=== PATIENT | male | born 1995 | race Caucasian/White ===

== ENCOUNTER 2017-08-25 20:22 | Emergency (ER) | payer OTHER ==
[2017-08-25 20:34] VITALS: BP 117/69
[2017-08-25] MEDS ORDERED: Amoxicillin/Clavulanate TAB* 875 MG PO ONE (20:59)
--- NOTE | 2017-08-25 21:25 | UC ---
FLU HPI - HPI Summary HPI Summary: 22 yr old [employer] c/o feeling worse after dx'd with Flu B yesterday but his sx of f/c/body aches sore throat, MULLINS started 4-5 days ago. Pt is on Tamiflu but worsening cough with sputum and fevers that are still high 103.8 in spite of taking tylenol and motrin around the clock - History of Current Complaint Chief Complaint: UCGeneralIllness Stated Complaint: COUGH, AND FEVER Time Seen by Provider: 08/25/17 20:50 Hx Obtained From: Patient Onset/Duration: Lasting Days, Still Present Severity Currently: Severe Severity Initially: Severe Pain Intensity: 6 - Allergy/Home Medications Allergies/Adverse Reactions: Allergies Allergy/AdvReac Type Severity Reaction Status Date / Time No Known Allergies Allergy Verified 08/25/17 20:34 Home Medications: Home Medications Ibuprofen [Advil] 200 mg PO 08/25/17 [History] Oseltamivir Phosphate [Tamiflu] 08/25/17 [History] PMH/Surg Hx/FS Hx/Imm Hx - Additional Past Medical History Additional PMH: none Previously Healthy: Yes - Surgical History Surgical History: None - Social History Alcohol Use: Occasionally Substance Use Type: None Smoking Status (MU): Never Smoked Tobacco Review of Systems Constitutional: Fever, Chills, Fatigue Skin: Negative Eyes: Negative ENT: Sore Throat, Ear Ache, Nasal Discharge, Sinus Congestion Respiratory: Cough Cardiovascular: Negative Gastrointestinal: Negative Genitourinary: Negative Motor: Negative Neurovascular: Negative Musculoskeletal: Myalgia Psychological: Negative Is Patient Immunocompromised?: No All Other Systems Reviewed And Are Negative: Yes Physical Exam Triage Information Reviewed: Yes Appearance: Well-Nourished, Ill-Appearing Vital Signs: Initial Vital Signs Temp 37.8 C 08/25/17 20:28 Pulse 83 08/25/17 20:28 Resp 16 08/25/17 20:28 BP 117/69 08/25/17 20:28 Pulse Ox 86 08/25/17 20:28 Eye Exam: Normal ENT Exam: Normal ENT: Positive: Pharyngeal erythema, Nasal congestion, Nasal drainage, TM dull, Other - POST-AURICULAR LN tenderness B/L. Negative: Tonsillar swelling, Tonsillar exudate Dental Exam: Normal Neck exam: Normal Neck: Positive: 1 Respiratory: Positive: Other: - Coarse BS B/L Cardiovascular Exam: Normal Abdominal Exam: Normal Musculoskeletal Exam: Normal Neurological Exam: Normal Psychological Exam: Normal Skin Exam: Normal Flu Course/Dx - Course Course Of Treatment: pt may have secondary bacterial infections- i.e- OM and bronchitis that may be evolving in setting of acute Flu B. Will tx with Augmentin and continue Tamiflu - Differential Dx/Diagnosis Differential Diagnosis/HQI/PQRI: Bronchitis, Influenza Provider Diagnoses: B/L Otitis Media. Bronchitis. Influenza B Discharge - Discharge Plan Condition: Stable Disposition: HOME Prescriptions: Amoxicillin/Clavulanate TAB* [Augmentin TAB 875*] 875 mg PO BID 7 Days #14 tab Referrals: No Primary Care Phys,NOPCP [Primary Care Provider] - Additional Instructions: rest, hydrate, control fever with Aleve (take every 12 hrs) then Tylenol every 4 -6 hrs for refractory fevers in between
== END 2017-08-25 21:22 | disposition home or self-care (01) ==
LOC: UCEAST 20:22
DX: H66.93 Otitis media, unspecified, bilateral (principal); J40 Bronchitis, not specified as acute or chronic; J10.1 Influenza due to other identified influenza virus with other respiratory manifestations
CPT/HCPCS: 99212; A9270-GY; G0463

== ENCOUNTER 2017-09-26 19:28 | Emergency (ER) | payer OTHER ==
[2017-09-26 21:30] LABS: ABS Basophils 0 10^3/ul (0-0.2); ABS Eosinophils 0.2 10^3/ul (0-0.6); ABS Lymphocytes 1.3 10^3/ul (1.0-4.8); ABS Monocytes 0.6 10^3/ul (0-0.8); ABS Neutrophils 7.2 10^3/ul (1.5-7.7); ABS Nucleated RBC 0 10^3/ul; Eosinophil % 2.1 % (0-6); Hematocrit 43 % (42-52); Hemoglobin 15.1 g/dl (14.0-18.0); Lymphocyte % 13.9 % (25-47); Mean Corpuscular HGB Conc 35 g/dl (31-36); Mean Corpuscular Hemoglobin 31 pg (27-31); Mean Corpuscular Volume 89 fL (80-94); Mean Platelet Volume 8.5 um3 (7.4-10.4); Nucleated Red Blood Cells % 0; Platelet Count 209 10^3/ul (150-450); Red Blood Count 4.87 10^6/ul (4.0-5.4); Red Cell Distribution Width 14 % (10.5-15); White Blood Count 9.4 10^3/ul (3.5-10.8)
[2017-09-26 21:47] LABS: EGFR Non-African American 99.9 (>60)
--- NOTE | 2017-09-26 22:01 | RAD ---
INDICATION: Chest pain COMPARISON: None. TECHNIQUE: Single AP portable view of the chest was obtained. FINDINGS: Image quality is compromised due to the relative inferiority of a portable chest x-ray. The heart and mediastinum exhibit normal size and contour. The lungs are grossly clear. There is no evidence of a large pleural effusion. Visualized bones are normal for the patient's age. IMPRESSION: No radiographic evidence for acute cardiopulmonary abnormality on this portable chest x-ray.
[2017-09-26 22:28] VITALS: BP 107/71
--- NOTE | 2017-09-27 14:20 | ED ---
Noe Carlos Julia, scribed for Curt Fine on 09/26/17 at 2137 . HPI Chest Pain - HPI Summary HPI Summary: This patient is a 22 year old M presenting to [facility] with a chief complaint of sudden intermittent chest pain/tightness and palpitations for the past 3-4 days that is currently improved. Patient rates pain 8/10 at its worst. Patient reports increased anxiety for the past couple of days, with a couple of panic attacks lasting 30 minutes. He states his chest pain began during soccer practice, but he does not usually have chest pain with exertion. Patient denies SI and SOB - History of Current Complaint Chief Complaint: EDChestPainROMI Time Seen by Provider: 09/26/17 21:05 Hx Obtained From: Patient Onset/Duration: Resolved Timing: Lasting Minutes Initial Severity: Severe Current Severity: Mild Pain Intensity: 8 Pain Scale Used: 0-10 Numeric Character: Pressure/Squeezing Aggravating Factor(s): Exertion Associated Signs and Symptoms: Positive: Chest Pain, Anxiety, Palpitations. Negative: Shortness of Breath - Allergy/Home Medications Allergies/Adverse Reactions: Allergies Allergy/AdvReac Type Severity Reaction Status Date / Time No Known Allergies Allergy Verified 08/25/17 20:34 Home Medications: Home Medications Ibuprofen TAB* [Advil TAB*] 200 mg PO Q6H PRN 09/26/17 [History Confirmed ] PMH/Surg Hx/FS Hx/Imm Hx Cardiovascular History: Denies: Hx Hypertension Psychiatric History: Reports: Hx Anxiety Infectious Disease History: No Infectious Disease History: Denies: Traveled Outside the [place] in Last 30 Days - Family History Known Family History: Positive: Cardiac Disease, Other - mental health - Social History Occupation: Student Alcohol Use: Occasionally Hx Substance Use: No - Pt denies cocaine use. Substance Use Type: Reports: None Smoking Status (MU): Never Smoked Tobacco Review of Systems Positive: Chest Pain Negative: Shortness Of Breath Positive: Anxious All Other Systems Reviewed And Are Negative: Yes Physical Exam - Summary Physical Exam Summary: Appearance: Well appearing, no pain distress Skin: warm, dry, reflects adequate perfusion Head/face: normal Eyes: EOMI, RL ENT: normal Neck: supple, non-tender Respiratory: CTA, breath sounds present Cardiovascular: RRR, pulses symmetrical Abdomen: non-tender, soft Bowel: present Musculoskeletal: normal, strength/ROM intact Neuro: normal, sensory motor intact, A&Ox3 Triage Information Reviewed: Yes Vital Signs On Initial Exam: Initial Vitals Temp Pulse Resp BP Pulse Ox 98.7 F 62 18 149/76 99 09/26/17 19:54 09/26/17 19:54 09/26/17 19:54 09/26/17 19:54 09/26/17 19:54 Vital Signs Reviewed: Yes Diagnostics - Vital Signs Vital Signs Temp Pulse Resp BP Pulse Ox 09/26/17 21:10 67 15 124/78 97 09/26/17 21:09 14 09/26/17 21:08 124/78 09/26/17 19:54 98.7 F 62 18 149/76 99 - Laboratory Lab Results: Lab Results 09/26/17 Range/Units 21:19 WBC 9.4 (3.5-10.8) 10^3/ul RBC 4.87 (4.0-5.4) 10^6/ul Hgb 15.1 (14.0-18.0) g/dl Hct 43 (42-52) % MCV 89 (80-94) fL MCH 31 (27-31) pg MCHC 35 (31-36) g/dl RDW 14 (10.5-15) % Plt Count 209 (150-450) 10^3/ul MPV 8.5 (7.4-10.4) um3 Neut % (Auto) 77.4 (38-83) % Lymph % (Auto) 13.9 L (25-47) % [place] % (Auto) 6.3 (0-7) % Eos % (Auto) 2.1 (0-6) % Baso % (Auto) 0.3 (0-2) % Absolute Neuts (auto) 7.2 (1.5-7.7) 10^3/ul Absolute Lymphs (auto) 1.3 (1.0-4.8) 10^3/ul Absolute Monos (auto) 0.6 (0-0.8) 10^3/ul Absolute Eos (auto) 0.2 (0-0.6) 10^3/ul Absolute Basos (auto) 0 (0-0.2) 10^3/ul Absolute Nucleated RBC 0 10^3/ul Nucleated RBC % 0 Result Diagrams: 09/26/17 21:19 09/26/17 21:19 Lab Statement: Any lab studies that have been ordered have been reviewed, and results considered in the medical decision making process. - Radiology CXR Radiology Interpretation Completed By: Radiologist - No radiographic evidence for acute cardiopulmonary abnormality on this portable chest x-ray. ED Physician has reviewed this report. - EKG 19:45 Cardiac Rate: NL - at 64 BPM EKG Rhythm: Sinus Rhythm EKG Interpretation: no acute changes Re-Evaluation - Re-Evaluation 1 Comment: Results discussed with patient. Patient will be discharged. Chest Pain Course/Dx - Course Course Of Treatment: Patient presents with udden intermittent chest pain/ tightness and palpitations for the past 3-4 days that is currently improved. Patient rates pain 8/10 at its worst. Patient reports increased anxiety for the past couple of days, with a couple of panic attacks lasting 30 minutes. He states his chest pain began during soccer practice, but he does not usually have chest pain with exertion. An EKG and CXR are of no acute concern. Lab results are unremarkable. Patient has an appointment with his physician tomorrow. He is instructed to keep his appointment prior to discharge. - Chest Pain Differential Diagnosis/HQI/PQRI: Acute ND, Chest Wall, Lower Respiratory Infection, Other: - anxeity reaction - Diagnoses Provider Diagnoses: Atypical chest pain, Anxiety Discharge - Sign-Out/Discharge Documenting (check all that apply): Discharge - Discharge Plan Condition: Stable Disposition: HOME Patient Education Materials: Chest Pain (ED) Referrals: [facility] [Primary Care Provider] - Additional Instructions: Keep your appointment with you doctor tomorrow. - Billing Disposition and Condition Condition: STABLE Disposition: HOME The documentation as recorded by the Noe harp Julia accurately reflects the service I personally performed and the decisions made by me, Curt Fine.
== END 2017-09-26 22:28 | disposition home or self-care (01) ==
LOC: ED 19:28
DX: R07.89 Other chest pain (principal); R00.2 Palpitations; R41.9 Unspecified symptoms and signs involving cognitive functions and awareness
CPT/HCPCS: 36415; 71045; 80053; 84443; 84484; 85025; 85379; 85610; 85730; 93005; 99282